=== PATIENT | male | born 1950 | race Caucasian/White ===

== ENCOUNTER 2020-08-21 18:25 | Emergency (ER) | payer MEDICARE, BC ==
[2020-08-21] MEDS ORDERED: Clotrimazole 10 MG Troche PO ONE ×2 (20:07→20:52)
--- NOTE | 2020-09-25 11:19 | EDM.PDOC ---
ED HPI GENERAL MEDICAL PROBLEM - General Chief Complaint: ENT Problem Stated Complaint: TONGUE SWELLING/THRUSH Time Seen by Provider: 08/21/20 19:26 Source of Information: Reports: Patient History Limitations: Reports: No Limitations - History of Present Illness INITIAL COMMENTS - FREE TEXT/NARRATIVE: 69 yo male presents to ER with his daughter c/o tongue pain and swelling. He is post cancer tx and also recent hospitalization with COVID. He did receive steroids during hospitalization. He has had oral yeast before that presented like this, also complains of sore scratchy throat. afebrile. - Related Data Allergies Allergy/AdvReac Type Severity Reaction Status Date / Time Penicillins Allergy Rash Verified 09/23/20 12:49 Home Meds: Home Meds Albuterol Sulfate [Albuterol Sulfate Hfa] 2 puff INH Q6HR PRN 08/21/20 [History] Apixaban [Eliquis] 1 tab PO BID 08/21/20 [History] Aspirin 1 tab PO DAILY 08/21/20 [History] Insulin Degludec [Tresiba Flextouch U-200] 1 injection SQ ASDIRECTED 08/21/20 [History] Insulin NPH Human Isophane [Novolin N Flexpen] 1 injection SQ ASDIRECTED 08/21/20 [History] Magnesium Oxide [Magnesium] 2 tab PO TID 08/21/20 [History] Metoprolol Tartrate 2 tab PO BID 08/21/20 [History] Phosphorus #1 [Virt-Phos 250 Neutral Tablet] 1 tab PO BID 08/21/20 [History] Sulfamethoxazole/Trimethoprim [Bactrim 400-80 MG] 1 tab PO BEDTIME 08/21/20 [History] Tacrolimus [Prograf] 2 tab PO BID 08/21/20 [History] Terazosin [Hytrin] 1 tab PO BEDTIME 08/21/20 [History] amLODIPine [Norvasc] 1 tab PO BID 08/21/20 [History] atorvaSTATin [Lipitor] 1 tab PO BEDTIME 08/21/20 [History] mycophenolate mofetiL [Cellcept] 750 mg PO BID 08/21/20 [History] traMADol [Ultram] 1 tab PO Q6HR PRN 08/21/20 [History] Past Medical History Cardiovascular History: Reports: Hypertension Respiratory History: Reports: Other (See Below) Other Respiratory History: covid Endocrine/Metabolic History: Reports: Diabetes, Type II - Past Surgical History Male Surgical History: Reports: Other (See Below) Other Male Surgeries/Procedures: kidney transplant Social & Family History - Tobacco Use Tobacco Use Status *Q: Never Tobacco User ED ROS ENT - Review of Systems Review Of Systems: See Below Constitutional: Denies: Fever HEENT: Reports: Other (tongue pain). Denies: Rhinitis Respiratory: Denies: Shortness of Breath, Wheezing Cardiovascular: Denies: Chest Pain ED EXAM, ENT - Physical Exam Exam: See Below Exam Limited By: No Limitations General Appearance: Alert, WD/WN, No Apparent Distress Ears: Normal External Exam, Normal Canal, Hearing Grossly Normal, Normal TMs Nose: Normal Inspection, Normal Mucousa, No Blood Mouth/Throat: Other (moderated erythemic mildly swollen tongue, erythemic posterior oral pharnix, no white patches but appears fungal in nature) Head: Atraumatic, Normocephalic Neck: Normal Inspection, Supple, Non-Tender Respiratory/Chest: No Respiratory Distress, Lungs Clear, Normal Breath Sounds Cardiovascular: Regular Rate, Rhythm Course - Vital Signs Last Recorded V/S: Last Vital Signs Temp 36.4 C 08/21/20 19:50 Pulse 58 L 08/21/20 19:50 Resp 16 08/21/20 19:50 BP 139/74 08/21/20 19:50 Pulse Ox 97 08/21/20 19:50 - Orders/Labs/Meds Meds: Medications Discontinued Medications Generic Name Dose Route Start Last Admin Trade Name Freq PRN Reason Stop Dose Admin Clotrimazole 10 mg 08/21/20 20:07 08/21/20 20:30 Clotrimazole 10 Mg Glory PO 08/21/20 20:08 10 mg ONETIME ONE Administration Clotrimazole 10 mg 08/21/20 20:52 08/21/20 20:58 Clotrimazole 10 Mg Glory PO 08/21/20 20:53 10 mg ONETIME ONE Administration Departure - Departure Time of Disposition: 20:30 Disposition: Home, Self-Care 01 Condition: Good Clinical Impression: Oral merlyn - Discharge Information *PRESCRIPTION DRUG MONITORING PROGRAM REVIEWED*: Not Applicable *COPY OF PRESCRIPTION DRUG MONITORING REPORT IN PATIENT VINCENT: Not Applicable Instructions: Oral Thrush, Adult, Oral Thrush, Adult, Qlim-cm-Taut Referrals: PCP,None [Primary Care Provider] - Forms: ED Department Discharge Additional Instructions: Diflucan 150 mg 3 doses each 72 hours apart Sepsis Event Note (ED) - Evaluation Sepsis Screening Result: No Definite Risk
== END 2020-08-21 21:10 | disposition home or self-care (01) ==
LOC: JP.ED 18:25
DX: B37.0 Candidal stomatitis (principal); E11.9 Type 2 diabetes mellitus without complications; I10 Essential (primary) hypertension; Z79.01 Long term (current) use of anticoagulants; Z88.0 Allergy status to penicillin; Z79.4 Long term (current) use of insulin; Z79.82 Long term (current) use of aspirin; Z79.899 Other long term (current) drug therapy
CPT/HCPCS: 99283; A9270

== ENCOUNTER 2021-06-06 13:52 | Emergency (ER) | payer MEDICARE, BC | END 2021-06-06 15:13 | disposition home or self-care (01) | LOC: JP.ED 13:52 | DX: S90.32XA Contusion of left foot, initial encounter (principal); I48.91 Unspecified atrial fibrillation; I10 Essential (primary) hypertension; E11.40 Type 2 diabetes mellitus with diabetic neuropathy, unspecified; Z88.0 Allergy status to penicillin; Z79.01 Long term (current) use of anticoagulants; Z79.82 Long term (current) use of aspirin; Z79.4 Long term (current) use of insulin; Z79.899 Other long term (current) drug therapy | CPT/HCPCS: 99282; 99283 ==

== ENCOUNTER 2022-01-26 15:24 | Emergency (ER) | payer MEDICARE, BC ==
[2022-01-26] MEDS ORDERED: Ondansetron 4 MG Tab.DIS PO ONE (17:08)
[2022-01-26] MEDS ORDERED: HYDROmorphone 1 MG/ML Syringe IM ONE (17:08)
[2022-01-26 17:43] LABS: ESTIMATED GFR 58 mL/min (>60); TROPONIN I HIGH SENSITIVITY 23.8 pg/mL (<=60.3)
[2022-01-26] MEDS ORDERED: Gabapentin 300 MG Cap PO ONE (18:06)
== END 2022-01-26 18:24 | disposition home or self-care (01) ==
LOC: JP.ED 15:24
DX: G50.0 Trigeminal neuralgia (principal); R11.2 Nausea with vomiting, unspecified; I10 Essential (primary) hypertension; E11.40 Type 2 diabetes mellitus with diabetic neuropathy, unspecified; Z88.0 Allergy status to penicillin; Z79.82 Long term (current) use of aspirin; Z79.899 Other long term (current) drug therapy; Z79.01 Long term (current) use of anticoagulants; Z90.49 Acquired absence of other specified parts of digestive tract
CPT/HCPCS: 36415; 80053; 84484; 85025; 96372; 99284; A9270; J1170; Q0162

== ENCOUNTER 2022-02-13 08:13 | Day surgery (SDC) | payer MEDICARE, BC ==
[2022-02-13] MEDS ORDERED: Lactated Ringers 1,000 ML IV SCH (09:15)
[2022-02-13] MEDS ORDERED: Propofol 200 MG/20 ML SDV ONE (09:25)
[2022-02-13] MEDS ORDERED: fentaNYL 50 MCG/ML SDV ONE (09:26)
== END 2022-02-13 10:50 | disposition home or self-care (01) ==
LOC: JP.SDS 08:13
PROVIDERS: ATTEND Student in an Organized Health Care Education/Training Program
DX: Z12.11 Encounter for screening for malignant neoplasm of colon (principal); I10 Essential (primary) hypertension; I48.91 Unspecified atrial fibrillation; E11.9 Type 2 diabetes mellitus without complications; Z79.899 Other long term (current) drug therapy; Z88.0 Allergy status to penicillin
CPT/HCPCS: G0121; J2704; J3010; J7120

== ENCOUNTER 2022-02-14 08:03 | Day surgery (SDC) | payer MEDICARE, BC ==
[2022-02-14] MEDS ORDERED: Propofol 200 MG/20 ML SDV ONE ×2 (08:12→09:36)
[2022-02-14] MEDS ORDERED: fentaNYL 50 MCG/ML SDV ONE (08:13)
[2022-02-14] MEDS ORDERED: Lactated Ringers 1,000 ML IV SCH (08:30)
== END 2022-02-14 11:28 | disposition home or self-care (01) ==
LOC: JP.SDS 08:03
PROVIDERS: ATTEND Student in an Organized Health Care Education/Training Program
DX: Z12.11 Encounter for screening for malignant neoplasm of colon (principal); D12.7 Benign neoplasm of rectosigmoid junction; D12.0 Benign neoplasm of cecum; D12.4 Benign neoplasm of descending colon; K57.30 Diverticulosis of large intestine without perforation or abscess without bleeding; I10 Essential (primary) hypertension; I48.91 Unspecified atrial fibrillation; E11.9 Type 2 diabetes mellitus without complications; E66.01 Morbid (severe) obesity due to excess calories; Z68.33 Body mass index [BMI] 33.0-33.9, adult; Z79.899 Other long term (current) drug therapy; Z88.0 Allergy status to penicillin
CPT/HCPCS: 45380; 45385; J2704; J3010; J7120

== ENCOUNTER 2022-09-18 16:56 | Emergency (ER) | payer MEDICARE, BC | END 2022-09-18 20:35 | disposition home or self-care (01) | LOC: JP.ED 16:56 | DX: N48.1 Balanitis (principal); N36.8 Other specified disorders of urethra; L30.4 Erythema intertrigo; E11.40 Type 2 diabetes mellitus with diabetic neuropathy, unspecified; I48.91 Unspecified atrial fibrillation; I10 Essential (primary) hypertension; Z94.0 Kidney transplant status; Z99.2 Dependence on renal dialysis; Z79.01 Long term (current) use of anticoagulants; Z79.82 Long term (current) use of aspirin; Z79.4 Long term (current) use of insulin; Z79.899 Other long term (current) drug therapy; Z86.16 Personal history of COVID-19 | CPT/HCPCS: 51702; 99283 ==

== ENCOUNTER 2022-09-23 09:48 | Emergency (ER) | payer MEDICARE, BC ==
[2022-09-23] MEDS ORDERED: cefTRIAXone 1 GM in Sodium Chloride 0.9% 50 ML IV ONE (09:54)
[2022-09-23 09:58] LABS: APPEARANCE,URINE CLOUDY (CLEAR); BILIRUBIN,URINE NEGATIVE (NEGATIVE); COLOR,URINE YELLOW (YELLOW); GLUCOSE,URINE NEGATIVE (NEGATIVE); KETONES,URINE NEGATIVE (NEGATIVE); LEUKOCYTE ESTERASE,URINE SMALL (NEGATIVE); NITRITE,URINE NEGATIVE (NEGATIVE); OCCULT BLOOD,URINE LARGE (NEGATIVE); PROTEIN,URINE >=300 mg/dL (NEGATIVE); UROBILINOGEN,URINE 0.2 EU/dL (0.2-1.0)
[2022-09-23 10:04] LABS: AMORPHOUS SEDIMENT,URINE MODERATE; BACTERIA,URINE MANY; EPITHELIAL CELLS,URINE NOT SEEN; MUCUS,URINE FEW; RBC,URINE 50-75 (0-5)
[2022-09-23] MEDS ORDERED: Diltiazem 25 MG/5 ML SDV IVPUSH ONE (10:07)
[2022-09-23 10:08] LABS: BASOPHILS ABSOLUTE AUTO 0.05 K/uL (0.00-0.10); BASOPHILS PERCENT AUTO 0.2 % (0.1-1.3); HEMATOCRIT 36.4 % (38.4-49.7); HEMOGLOBIN 11.8 g/dL (12.9-16.9); IMMATURE GRAN ABSOLUTE AUTO 0.12 K/uL (0.00-0.23); IMMATURE GRAN PERCENT AUTO 0.6 % (0.0-0.7); LYMPHOCYTES ABSOLUTE AUTO 0.36 K/uL (0.8-3.3); LYMPHOCYTES PERCENT AUTO 1.8 % (11.4-47.7); MEAN CORPUSCULAR HGB CONC 32.4 g/dL (31.6-35.5); MEAN CORPUSCULAR VOLUME 86.3 fL (81.4-99.0); MONOCYTES ABSOLUTE AUTO 2.02 K/uL (0.20-0.90); MONOCYTES PERCENT AUTO 9.9 % (3.3-12.6); NEUTROPHILS PERCENT AUTO 87.5 % (40.0-78.1); PLATELET COUNT,PLT 152 K/uL (130-375); RED BLOOD CELL COUNT 4.22 M/uL (4.14-5.76); WHITE BLOOD CELL COUNT,WBC 20.4 K/uL (3.2-11.0)
[2022-09-23] MEDS ORDERED: Sodium Chloride 0.9% 1,000 ML IV SCH (10:30)
[2022-09-23 10:38] LABS: ALANINE AMINOTRANSFERASE,ALT 24 U/L (12-78); ASPARTATE AMNIOTRANSFERASE,AST 35 U/L (15-37); BILIRUBIN TOTAL 1.4 mg/dL (0.2-1.0); CALCIUM 7.8 mg/dL (8.5-10.1); CARBON DIOXIDE,CO2 22 mmol/L (21-32); CHLORIDE,CL 98 mmol/L (100-108); CREATININE 2.3 mg/dL (0.8-1.3); EST CRCL DRUG DOSING (CG) 30.92 mL/min; ESTIMATED GFR 29 mL/min (>60); POTASSIUM,K 3.2 mmol/L (3.6-5.2); PROTEIN TOTAL,TP 7.1 g/dL (6.4-8.2); SODIUM,NA 134 mmol/L (140-148)
[2022-09-23 10:48] LABS: A/G RATIO 0.9 (1.2-2.2); ALBUMIN 3.4 g/dL (3.4-5.0); ALKALINE PHOSPHATASE 87 U/L (46-116); BLOOD UREA NITROGEN,BUN 33 mg/dL (7-18); GLUCOSE RANDOM 174 mg/dL (74-106)
[2022-09-23 10:49] LABS: ANION GAP 17.2 mmol/L (5.0-14.0); CREATINE KINASE,CK 2474 U/L (39-308)
[2022-09-23] MEDS ORDERED: Diltiazem 100 MG in Sodium Chloride 0.9% 100 ML IV SCH (11:00)
[2022-09-23] MEDS ORDERED: Sodium Chloride 0.9% 1,000 ML IV ONE (11:22)
== END 2022-09-23 12:00 ==
LOC: JP.ED 09:48
DX: A41.9 Sepsis, unspecified organism (principal); N39.0 Urinary tract infection, site not specified; I48.91 Unspecified atrial fibrillation; I10 Essential (primary) hypertension; E11.40 Type 2 diabetes mellitus with diabetic neuropathy, unspecified; Z88.0 Allergy status to penicillin; Z79.01 Long term (current) use of anticoagulants; Z79.82 Long term (current) use of aspirin; Z79.4 Long term (current) use of insulin; Z79.899 Other long term (current) drug therapy; Z86.16 Personal history of COVID-19; Z20.822 Contact with and (suspected) exposure to COVID-19
CPT/HCPCS: 36415; 71045; 80053; 81001; 82550; 83605; 84145; 85025; 87040; 87086; 87088; 87186; 96365; 96367; 96368; 96375; 99285; J0282; J0696; J3370; J3490; J7030; J7050; J7060; U0002

== ENCOUNTER 2023-04-30 06:58 | Day surgery (SDC) | payer MEDICARE, BC ==
[2023-04-30] MEDS ORDERED: Lactated Ringers 1,000 ML IV SCH (07:00)
[2023-04-30] MEDS ORDERED: Propofol 200 MG/20 ML SDV ONE (07:05)
[2023-04-30] MEDS ORDERED: fentaNYL 100 MCG/2 ML SDV ONE (07:05)
== END 2023-04-30 09:00 | disposition home or self-care (01) ==
LOC: JP.SDS 06:58
PROVIDERS: ATTEND Student in an Organized Health Care Education/Training Program
DX: Z12.11 Encounter for screening for malignant neoplasm of colon (principal); Z53.8 Procedure and treatment not carried out for other reasons; Z94.0 Kidney transplant status
CPT/HCPCS: 93005; J2704; J3010

== ENCOUNTER → 2023-05-03 | Day surgery (SDC) | payer MEDICARE, BC ==
[~2023-05-03] MED LIST: Propofol 200 MG/20 ML SDV ONE; fentaNYL 50 MCG/ML SDV ONE
[2023-05-03] MEDS: Sodium Chloride 0.9% 1,000 ML IV SCH (07:41)
== END ==
LOC: JP.SDS 06:22
PROVIDERS: ATTEND Surgery
DX: Z12.11 Encounter for screening for malignant neoplasm of colon (principal); D12.8 Benign neoplasm of rectum; K57.30 Diverticulosis of large intestine without perforation or abscess without bleeding; I10 Essential (primary) hypertension; I48.0 Paroxysmal atrial fibrillation
CPT/HCPCS: 45380; 88305; J2704; J3010; J7030